=== PATIENT | male | born 1990 | race African-American/Black ===

== ENCOUNTER 2017-10-18 10:15 | Emergency (ER) | payer OTHER ==
[~2017-10-18] VITALS: Ht 175.3 cm; Wt 142.9 kg
[2017-10-18 10:25] VITALS: TEMP 98.6
[2017-10-18 11:30] VITALS: BP 138/50
== END 2017-10-18 11:45 | disposition home or self-care (01) ==
LOC: ED 10:15
DX: S70.12XA Contusion of left thigh, initial encounter (principal); W31.9XXA Contact with unspecified machinery, initial encounter
CPT/HCPCS: 96372; 99283; J1885